=== PATIENT | male | born 1955 | race Two or more races ===

== ENCOUNTER → 2016-11-15 | Outpatient (REF) | payer OTHER | LOC: M SMT 17:03 | PROVIDERS: ATTEND Nurse Practitioner Family | DX: R97.20 Elevated prostate specific antigen [PSA] (principal) ==

== ENCOUNTER → 2016-12-29 | Outpatient (REF) | payer OTHER | LOC: M LAB REF 12:17 | PROVIDERS: ATTEND Physician Assistant Medical | DX: J32.0 Chronic maxillary sinusitis (principal) ==

== ENCOUNTER → 2017-03-24 | Outpatient (CLI) | payer OTHER ==
--- NOTE | 2017-03-24 10:48 | REP ---
MAXILLOFACIAL CT WITHOUT CONTRAST: HISTORY: Nasal polyps. COMPARISON: 05/03/2007 The patient is status post bilateral uncinectomy, partial ethmoidectomy, left middle nasal turbinectomy and partial right middle nasal turbinectomy. Mild mucosal thickening is present in the residual ethmoid air cells and left frontal sinus. Minimal mucosal thickening is present in the maxillary, sphenoid and right frontal sinuses. The inferior nasal turbinates are partially paradoxical. There is very minimal deviation of the nasal septum to the right anteriorly and to the left posteriorly. The cribriform plate, medial mendez of the orbits and optic canals are intact. The carotid canals form segment of the posterolateral mendez of the sphenoid sinus. The sphenoid sinus septum inserts into the left internal carotid canal wall. The maxillary and sphenoid sinus mendez are thickened and sclerotic consistent with chronic sinusitis. Soft tissue densities are present in the nasal passage consistent with polyps. IMPRESSION: 1. Postoperative change as described above. 2. Sinus mucosal thickening as described above. 3. There are soft tissue densities in the nasal passage consistent with polyps. Signed by Osiel Siegel MD 03/24/2017 10:53 A
== END ==
LOC: M RAD 10:01
PROVIDERS: ATTEND Physician Assistant Medical
DX: J33.1 Polypoid sinus degeneration (principal)

== ENCOUNTER → 2017-04-29 | Day surgery (SDC) | payer OTHER ==
[~2017-04-29] VITALS: Ht 170.2 cm; Wt 79.4 kg
[~2017-04-29] MED LIST: ACETAMINOPHEN TAB 650MG DOSE (2X325MG) PO PRN; ALBU17IN INH; FLOM5CAP PO; FLON1SPR; FUROSEMIDE 100 MG/10 ML VIAL (J1940) As Ordered ONE; LIDOCAINE 1% SDV 5 ML VIAL SQ ONE; LR 1,000 ML IV ONE; LR 1,000 ML IV SCH; MIDAZOLAM INJ 2 MG/2 ML VIAL (J2250) As Ordered ONE; MONT10TA2 PO; ONDANSETRON 4MG/2ML VIAL (J2405) As Ordered ONE; ONDANSETRON 4MG/2ML VIAL (J2405) IV PRN; PANT40TA2 PO; PERCOCET 5MG/325MG TAB As Ordered ONE; PHENYLEPHRINE INJ 10MG/ML VIAL (J2370) As Ordered ONE; PROPOFOL 200 MG/20 ML VIAL As Ordered ONE; ROCURONIUM BROMIDE 50 MG/5 ML VIAL/SYRINGE As Ordered ONE; SYMB16INH INH; VITA500T3 PO; fentaNYL 100 MCG/2 ML INJECTION (J3010) As Ordered ONE; oxyBUTYnin 5 MG TAB PO PRN
[2017-04-29] MEDS: PERCOCET 5MG/325MG TAB PO PRN ×2 (12:07→13:18)
[2017-04-29] MEDS: fentaNYL 100 MCG/2 ML INJECTION (J3010) IV PRN ×3 (12:26→13:12)
[2017-04-29 15:10] VITALS: BP 170/62
--- NOTE | 2017-05-04 08:34 | RO ---
DATE OF PROCEDURE: 04/29/2017 PREPROCEDURE DIAGNOSIS: Benign prostatic hyperplasia. POSTPROCEDURE DIAGNOSIS: Benign prostatic hyperplasia. PROCEDURE: Cystoscopy, button transurethral electrovaporization of prostate, urethral meatal dilatation. SURGEON: Laith Hyde MD SILVERSMITH APPRENTICE: None. ANESTHESIA: General. OPERATIVE INDICATIONS: This is a 62-year-old male with benign prostatic hyperplasia and lower urinary tract symptoms, which have been refractory to medical therapy. He was brought to the operating room today for treatment. DESCRIPTION OF PROCEDURE: The patient was brought to the operating room where general anesthesia was induced. Prophylactic antibiotics were infused. He was then placed in the dorsal lithotomy position and prepped and draped in the usual sterile fashion. At this point, I tried to insert a button resectoscope into the urethral meatus, but it would not go as the urethral meatus was a little bit too narrow. I, therefore, had to dilate the urethral meatus to #30-Mongolian using curved metal sounds. Next, the button resectoscope was introduced and advanced all the way into the bladder using the visual obturator. I made note of the location of both ureteral orifices, and they were not close to the bladder neck. The patient had bilobar prostatic hyperplasia. At this point, I began vaporizing hyperplastic tissue circumferentially at the bladder neck, and then on both lobes of disease. I kept doing this until there was a clear channel established. Throughout the procedure, I made sure not to vaporize too close to the ureteral orifices or distal to the verumontanum. Once I was done vaporizing, hemostasis was obtained using the coagulation current. At this point, hemostasis was excellent. Next, the button resectoscope was then removed, and a #20-Mongolian Thurman catheter was inserted into the bladder and the balloon was filled with 15 mL of sterile water. At the end of the procedure, fluid drained out clear. The catheter was then connected to gravity drainage, and this marked conclusion of the procedure. The patient was then taken out of the dorsal lithotomy position, awakened from anesthesia, and transported to recovery room in stable condition. ESTIMATED BLOOD LOSS: 15 mL. COMPLICATIONS: None. SPECIMENS: None. PLAN: The patient will followup in the clinic in approximately 1 week for catheter removal and voiding trial. GIO
== END | disposition home or self-care (01) ==
LOC: M SDC 07:55
PROVIDERS: ATTEND Urology
DX: N40.0 Benign prostatic hyperplasia without lower urinary tract symptoms (principal); G47.30 Sleep apnea, unspecified; J45.909 Unspecified asthma, uncomplicated; K21.9 Gastro-esophageal reflux disease without esophagitis; M54.5 Low back pain; Z88.1 Allergy status to other antibiotic agents; Z79.899 Other long term (current) drug therapy
CPT/HCPCS: 52601; J0690; J1940; J2250; J2405; J3010

== ENCOUNTER → 2018-03-07 | Outpatient (CLI) | payer OTHER | LOC: M SMT 10:54 | DX: J45.41 Moderate persistent asthma with (acute) exacerbation (principal) | CPT/HCPCS: 71046 ==

== ENCOUNTER → 2019-03-07 | Outpatient (REF) | payer OTHER ==
[~2019-03-07] MED LIST changes: -ACETAMINOPHEN TAB 650MG DOSE (2X325MG) PO PRN; +FLOM0.4C39 PO; -FLOM5CAP PO; -FUROSEMIDE 100 MG/10 ML VIAL (J1940) As Ordered ONE; -LIDOCAINE 1% SDV 5 ML VIAL SQ ONE; -LR 1,000 ML IV ONE; -LR 1,000 ML IV SCH; -MIDAZOLAM INJ 2 MG/2 ML VIAL (J2250) As Ordered ONE; -ONDANSETRON 4MG/2ML VIAL (J2405) As Ordered ONE; -ONDANSETRON 4MG/2ML VIAL (J2405) IV PRN; -PANT40TA2 PO; +PANT40TA3 PO; -PERCOCET 5MG/325MG TAB As Ordered ONE; -PHENYLEPHRINE INJ 10MG/ML VIAL (J2370) As Ordered ONE; -PROPOFOL 200 MG/20 ML VIAL As Ordered ONE; -ROCURONIUM BROMIDE 50 MG/5 ML VIAL/SYRINGE As Ordered ONE; -fentaNYL 100 MCG/2 ML INJECTION (J3010) As Ordered ONE; -oxyBUTYnin 5 MG TAB PO PRN
== END ==
LOC: M LAB REF 13:17
PROVIDERS: ATTEND Nurse Practitioner Family
DX: R06.00 Dyspnea, unspecified (principal); J40 Bronchitis, not specified as acute or chronic

== ENCOUNTER → 2019-03-26 | Outpatient (REF) | payer OTHER | LOC: M LAB REF 12:48 → EEVIPCON 12:48 | PROVIDERS: ATTEND Nurse Practitioner Family | DX: R06.00 Dyspnea, unspecified (principal) ==

== ENCOUNTER → 2019-07-12 | Outpatient (REF) | payer OTHER ==
[~2019-07-12] MED LIST changes: +CYAN500T8 PO; -VITA500T3 PO
[2019-07-12 15:38] LABS: FOLATE > 24.0 NG/ML; VITAMIN B12 LEVEL 381 PG/ML
[2019-07-17 16:47] LABS: CERULOPLASMIN 20.4 mg/dL (16.0-31.0); VITAMIN B1 LEVEL WHOLE BLOOD 121.8 nmol/L (66.5-200.0); VITAMIN B6,PYRIDOXAL PHOSPHATE 41.9 ug/L (5.3-46.7); VITAMIN E(ALPHA TOCOPHEROL) 9.8 mg/L (9.0-29.0); VITAMIN E(GAMMA TOCOPHEROL) 0.7 mg/L (0.5-4.9)
== END ==
LOC: M LABNEURO 09:18
PROVIDERS: ATTEND Psychiatry & Neurology Neurology
DX: R25.1 Tremor, unspecified (principal)

== ENCOUNTER → 2019-11-13 | Outpatient (CLI) | payer OTHER ==
[~2019-11-13] MED LIST changes: -MONT10TA2 PO; +MONT10TA4 PO
--- NOTE | 2019-11-28 04:01 | ECWPNPC ---
PATIENT NAME: NOE ARRIETA : 1955 GENDER: MALE VISIT DATE: 11/13/2019 DISCHARGE DATE: 11/13/19 1316 VISIT LOCKED DATE TIME: PHYSICIAN: LAVON CHÁVEZ RESOURCE: LAVON CHÁVEZ REASON FOR APPOINTMENT 1. BACK PAIN, LS RADICULOPATHY AND DISC DISEASE HISTORY OF PRESENT ILLNESS HISTORY OF PRESENT ILLNESS: 64-YEAR-OLD GENTLEMAN REFERRED BY [facility] FOR EVALUATION OF CHRONIC LOW BACK PAIN. PAIN BEGAN SEVERAL YEARS AGO AFTER TWISTING. PAIN IS AGGRAVATED BY STANDING. PAIN IS RELIEVED SOMEWHAT WITH SITTING. REPORTS OCCASIONAL NIGHTTIME AWAKENINGS DUE TO PAIN. PAIN IS LOCATED IN CENTRAL LOW BACK WITH RADIATION INTO INTO THE RIGHT POSTERIOR THIGH. DESCRIBES PAIN TIGHTNESS AND TENDERNESS. DENIES RECENT FEVER, ILLNESS OR WEIGHT LOSS. DENIES BOWEL OR BLADDER INCONTINENCE. RATING PAIN LEVEL A 4/10 VAS. PAIN THE PATIENT DESCRIBES THE PAIN... FALL RISK SCREENING: SCREENING :NO FALLS REPORTED IN THE LAST YEAR CURRENT MEDICATIONS TAKING SYMBICORT 160-4.5 MCG/ACT AEROSOL 2 PUFFS INHALATION TWICE A DAY TAKING FLONASE ALLERGY RELIEF 50 MCG/ACT SUSPENSION 1 SPRAY IN EACH NOSTRIL NASALLY ONCE A DAY TAKING PANTOPRAZOLE SODIUM 40 MG TABLET DELAYED RELEASE 1 TABLET ORALLY ONCE A DAY TAKING SINGULAIR 10 MG TABLET 1 TABLET IN THE EVENING ORALLY ONCE A DAY TAKING VENTOLIN HFA 108 (90 BASE) MCG/ACT AEROSOL SOLUTION 2 PUFFS NEEDED INHALATION EVERY 4 HRS TAKING AZELASTINE HCL 137 MCG/SPRAY SOLUTION 2 SPRAYS IN EACH NOSTRIL NASALLY DAILY TAKING LOSARTAN POTASSIUM 50 MG TABLET 1 TABLET ORALLY ONCE A DAY, NOTES: NOT SURE OF DOSE TAKING PRIMIDONE 250 MG TABLET 1/2 TAB ORALLY BID NOT-TAKING TAMSULOSIN HCL 0.4 MG CAPSULE 1 CAPSULE ORALLY ONCE A DAY NOT-TAKING CIPROFLOXACIN HCL 500 MG TABLET 1 TABLET ORALLY EVERY 12 HRS NOT-TAKING DOXYCYCLINE HYCLATE 100 MG CAPSULE 1 CAPSULE ORALLY EVERY 12 HRS NOT-TAKING MINOCYCLINE HCL 100 MG CAPSULE 1 CAPSULE ORALLY EVERY 12 HRS MEDICATION LIST REVIEWED AND RECONCILED WITH THE PATIENT PAST MEDICAL HISTORY ED SEBORRHEIC DERMATITIS ASTHMA GERD KORY URINARY FREQUENCY ESSENTIAL TREMORS HYPERTENSION ALLERGIES BACTRIM: RASH - ALLERGY ASPIRIN: WHEEZING - ALLERGY VIAGRA: HEADACHE - ALLERGY SURGICAL HISTORY HERNIA REPAIR 1986, 1992 TONSILS EXCISION OF NASAL POLYPS TURP APRIL 2017 RIGHT KNEE MANISCUS REPAIR 2007 FAMILY HISTORY FATHER: MOTHER: ALIVE NO FAMILY HISTORY OF ANY UROLOGICAL DISEASES OR CANCERS. SOCIAL HISTORY GENERAL: TOBACCO USE ARE YOU A:NONSMOKER OTHERS AT HOME: SPOUSE. EDUCATION LEVEL OF EDUCATION:HIGH SCHOOL DIET: REGULAR. NEW PATIENT PAIN DIARY PATIENT DESCRIBES PAIN :TENDER, SORE PRECIPITATING FACTORS PT GETS CAUGHT OFF GUARD WITH TURNING AND SPASMS IN LOW BACK, PAIN RADIATES FROM RIGHT BUTTOCK DOWN RIGHT LEG ALLEVIATING FACTORS PT STATES THAT STRETCHING, REST RELIEVES DISCOMFORT IMPACT ON FUNCTION REDUCED MOBILITY RECREATIONAL DRUG USE DRUG USE?NO EXERCISE: DAILY, STRETCHING BACK AND LEGS, PUSHUPS, CRUNCHES. LEARNING BARRIERS / SPECIAL NEEDS HEARING IMPAIRED?YES HARD OF HEARING, NO HEARING AID VISION IMPAIRED?NO PAIN CLINIC PFS, CLERGY, PUBLIC HEALTH REFERRALS HAS THE PATIENT BEEN EDUCATED REGARDING HIS/HER PLAN OF CARE?YES ORIENTED TO PAIN MANAGEMENT CENTER HAS THE PATIENT BEEN EDUCATED REGARDING PAIN, THE RISK FOR PAIN, THE IMPORTANCE OF EFFECTIVE PAIN MANAGEMENT, AND THE PAIN ASSESSMENT PROCESS?YES LATEX QUESTIONNAIRE LATEX ALLERGY : HAVE YOU EVER DEVELOPED ANY TYPE OF REACTION AFTER HANDLING LATEX PRODUCTS SUCH RUBBER GLOVES, CONDOMS, DIAPHRAGMS, BALLOONS, SOCKS, OR UNDERWEAR?NO LATEX ALLERGY : HAVE YOU EVER DEVELOPED ANY TYPE OF REACTION DURING OR AFTER DENTAL APPOINTMENT, VAGINAL/RECTAL EXAMINATION, SURGICAL PROCEDURE, OR ANY OTHER EXPOSURE?NO LATEX RISK : HAVE YOU EVER HAD ANY DIFFICULTY BREATHING OR HIVES AFTER EATING OR HANDLING ANY FRUITS, OR VEGETABLES; SUCH KIWI, BANANAS, STONE FRUITS, OR CHESTNUTSNO LATEX RISK : DO YOU HAVE A PREVIOUS PERSONAL HISTORY OF MORE THAN NINE SURGERIES, SPINA BIFIDA, OR REPEATED CATHERIZATIONS? NO LATEX RISK : ARE YOU FREQUENTLY EXPOSED TO LATEX PRODUCTS IN YOUR OCCUPATION?NO DATE ASKED : 11/13/2019 CAFFEINE CAFFEINE USE?NO ADVANCE DIRECTIVE ADVANCE DIRECTIVE DISCUSSED WITH PATIENT:YES PT STATES THAT CAITIE ARRIETA [facility] [phone] MARITAL STATUS: . 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 SEXUAL HX HAD SEX IN THE LAST 12 MONTHS (VAGINAL, ORAL, OR ANAL)?YES WITHWOMEN ONLY USE PROTECTION?NO REVIEWED WITH PATIENT 11/13/2019 DS. HOSPITALIZATION/MAJOR DIAGNOSTIC PROCEDURE PNEUMONIA 2012 HEPATITIS 1966 REVIEW OF SYSTEMS REVIEWED BY: PROVIDER: LAVON WHITEHEAD . CONSTITUTIONAL: ANY CHANGE IN YOUR MEDICAL CONDITION? YES, AUG-SEP DIAGNOSED WITH ESSENTIAL TREMORS . CHILLS NO . FEVER NO . INFECTION: DO YOU HAVE HISTORY OF MRSA? 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 MUSCULOSKELETAL: ANY NEW PATTERNS OF PAIN OR NUMBNESS? NO . GASTROENTEROLOGY: ANY NEW CHANGE IN BOWEL CONTROL? NO . GENITOURINARY: ANY NEW CHANGE IN BLADDER CONTROL? NO . IS THERE A CHANCE YOU COULD BE ? NO . HEMATOLOGY/LYMPH: DO YOU TAKE ANY BLOOD THINNERS? (FOR EXAMPLE- COUMADIN, PLAVIX, AGGRENOX, PLATEL, PRADAXA, OR XARELTO) NO . WHEN WAS YOUR LAST DOSE? DATE: TIME: . NEUROLOGY: HAVE YOU FALLEN IN THE PAST 12 MONTHS? NO . ANY NEW EXTREMITY NUMBNESS OR WEAKNESS? YES, PT STATES THAT LEFT ARM HAS SLIGHT WEAKNESS, TINGLING AND NUMB SENSATION . CARDIOLOGY: DO YOU HAVE A PACEMAKER OR DEFIBRILLATOR? NO . RESPIRATORY: HAVE YOU BEEN SICK IN THE PAST WEEK? YES, PT STATES THAT HE HAS SINUS INFECTION, TAKING ANTIBIOTICS CURRENTLY . FEVER NO . FLU LIKE SYMPTOMS? NO . COUGH NO . INTEGUMENTARY: DO YOU HAVE ANY RASHES OR OPEN SORES? NO . ALLERGIC/IMMUNO: ARE YOU ALLERGIC TO IV DYE? NO . ANY NEW ALLERGIES? NO . PSYCHIATRIC: DO YOU HAVE THOUGHTS OF HURTING YOURSELF OR SOMEONE ELSE? NO . ARE YOU ABUSED, NEGLECTED, OR IN AN UNSAFE ENVIRONMENT? NO . ENDOCRINOLOGY: ARE YOU DIABETIC? NO . OTHER: IF YES, PLEASE LIST: ____ . ANY NEW PROBLEMS WITH YOUR MEDICATIONS? YES, PRIMIDONE, CAUSING ED, PT VERY UPSET ABOUT SIDE EFFECTS. . WHEN DID YOU LAST EAT? ____ . WHEN DID YOU LAST DRINK? ____ . WHAT DID YOU LAST DRINK? ____ . NAME OF PERSON DRIVING YOU HOME? ____ . DO YOU HAVE ANY OTHER QUESTIONS OR CONCERNS NO . VITAL SIGNS WT 184.6 LBS, HT 67 IN, BMI 28.91 INDEX, BP 150/70 MM HG, HR 72 /MIN, RR 18 /MIN, TEMP 97.2 F, OXYGEN SAT % 98, SAFE IN ENV? (Y/N) Y, REVIEWED BY: OLYA. EXAMINATION GENERAL EXAMINATION: GENERAL AWAKE,ALERT ,PLEAASANT . PSYCH AFFECT NORMAL . LUNGS: LUNG ROSEN ARE CLEAR TO AUSCULTATION BILATERALLY. GOOD MOVEMENT OF AIR . HEART: S1, S2 IN A REGULAR RATE AND RHYTHM. NO SIGNIFICANT MURMURS, RUBS OR GALLOPS NOTED . MUSCULOSKELETAL: MUSCLE STRENGTH TESTING 4/5 BILATERAL LOWER EXTREMITIES. LUMBAR: TRIGGER POINTS:, ELICITED WITH PALPATION OVER RIGHT LUMBAR PARAVERTEBRAL MUSCLES WITH AGGRAVATION OF PAIN WITH ROJM OF SPINE NOTED.. DIAGNOSTIC TESTS REVIEWEDMRI OF LS-SPINE 08/18/2019 . ASSESSMENTS MYALGIA - M79.10 (PRIMARY) TREATMENT MYALGIA NOTES: TPI RIGHT LOW BACKMYALGIA. RIGHT LOW BACKMYOFASCIAL RELEASE. PT 2 TIMES A WEEK 6 WEEKS. PROCEDURE CODES FA211 ESTABILISHED PATIENT [facility] CHARGE DISPOSITION & COMMUNICATION FOLLOW UP POST (REASON: TPI RIGHT LOW BACK) ELECTRONICALLY SIGNED BY VENTURA THOMAS ON 11/27/2019 AT 03:38 PM EST DISCLAIMER : THIS IS A VISIT SUMMARY EXTRACTED FROM THE [employer] CHART. IT IS NOT A COPY OF THE [employer] ANTIQUES & CONSIGNMENT PROGRESS NOTE. GIO
== END ==
LOC: M PAIN 11:15
PROVIDERS: ATTEND Nurse Practitioner Family
DX: M79.10 Myalgia, unspecified site (principal)

== ENCOUNTER → 2021-04-14 | Outpatient (REF) | payer MEDICARE ==
[~2021-04-14] MED LIST changes: +CYAN500T14 PO; -CYAN500T8 PO; +MONT10TA10 PO; -MONT10TA4 PO; +PANT40TA29 PO; -PANT40TA3 PO
== END ==
LOC: M LAB REF 17:08
PROVIDERS: ATTEND Physician Assistant Medical
DX: J32.0 Chronic maxillary sinusitis (principal)

== ENCOUNTER → 2021-07-03 | Outpatient (CLI) | payer MEDICARE ==
--- NOTE | 2021-07-03 16:52 | REP ---
INDICATION: POLYP OF NASAL CAVITY. COMPARISON: Comparison study March 24, 2017. TECHNIQUE: Helical scanning is acquired and 2 mm axial images re-formatted. Coronal MPR images are generated and reviewed. FINDINGS: The uncinate processes are bilaterally resected. Partial right and left middle turbinectomies have been performed. Partial ethmoidectomy is again visible. There is moderate mucosal thickening in the remaining ethmoid air cells and in the maxillary sinuses bilaterally. The nasal antral windows are widely patent. There is a possible nasal polyp on the left superiorly and anteriorly. Bony nasal septum is not deviated. Frontal sinuses are clear. Sphenoid sinuses show parcel of mucosal filling anteriorly. This is more pronounced than on the prior study. The maxillary sinus mucosal changes are unchanged. The left mastoid air cells remain pneumatized. The right mastoid is sclerotic as before. No intraorbital abnormality is seen. The visualized intracranial structures are unremarkable. IMPRESSION: Patient is post bilateral uncinectomy and bilateral middle turbinectomy and ethmoidectomy. Possible small left anterosuperior nasal polyp. Mucosal changes in the maxillary and ethmoid sinuses. Sphenoid sinus mucosal changes. <Electronically signed by Eduar Villasenor > 07/03/21 0673
== END ==
LOC: M RAD 16:05
PROVIDERS: ATTEND Physician Assistant Medical
DX: J33.0 Polyp of nasal cavity (principal)

== ENCOUNTER → 2022-01-25 | Outpatient (REF) | payer MEDICARE ==
[~2022-01-25] MED LIST changes: -MONT10TA10 PO; +MONT10TA97 PO
[2022-01-25 14:05] LABS: APPEARANCE, URINE HAZY (CLEAR); BACTERIA, URINE AUTO NEGATIVE (NEGATIVE); BILIRUBIN, URINE AUTO NEGATIVE (NEGATIVE); BLOOD, URINE BLOOD NEGATIVE (NEGATIVE); COLOR, URINE YELLOW (YELLOW); GLUCOSE, URINE (UA) AUTO NEGATIVE (NEGATIVE); KETONE, URINE AUTO NEGATIVE (NEGATIVE); LEUKOCYTE ESTERASE, URINE AUTO NEGATIVE (NEGATIVE); MUCUS, URINE SMALL (NEGATIVE); NITRITE, URINE AUTO NEGATIVE (NEGATIVE); PROTEIN, URINE AUTO NEGATIVE (NEGATIVE); RBC, URINE AUTO 1 /HPF (0-3); SPECIFIC GRAVITY URINE AUTO 1.019 (1.002-1.035); SQUAMOUS EPITHELIAL CELL UR AU 0 /HPF (0-6); UROBILINOGEN, URINE AUTO 0.2 mg/dL (0.0-2.0); WBC, URINE AUTO 0 /HPF (0-3)
== END ==
LOC: M SMT 13:17
PROVIDERS: ATTEND Urology
DX: R31.0 Gross hematuria (principal)

== ENCOUNTER → 2024-11-07 | Outpatient (REF) | payer OTHER | LOC: M LAB REF 16:39 | PROVIDERS: ATTEND Physician Assistant Medical | DX: J32.9 Chronic sinusitis, unspecified (principal) ==

== ENCOUNTER → 2025-01-15 | Outpatient (CLI) | payer MEDICARE, OTHER | LOC: M RAD 09:59 | PROVIDERS: ATTEND Physician Assistant Medical | DX: J33.0 Polyp of nasal cavity (principal) ==